=== PATIENT | female | born 2005 ===

== ENCOUNTER 2024-03-28 20:39 | Emergency (ER) | payer SELFPAY ==
[2024-03-28 20:47] VITALS: BP 158/100
[2024-03-28] MEDS: DELTASONE 50 MG PO (21:45)
[2024-03-28 23:15] VITALS: BP 126/75
--- NOTE | 2024-03-29 00:12 | ED.GENMED ---
History of Present Illness
General
Chief Complaint: Allergic Reaction
Source: patient
Time Seen by Provider: 03/28/24 21:14
History of Present Illness
History of Present Illness:
18yoF with a history of presenting with mother and significant other when she had a rash. She initially started having itching of her scalp 2 nights ago. She woke up yesterday with a rash on her bilateral hands, knees, neck, and feet. The rash
is itchy and mildly painful. She has taken [id number] anti-inflammatories without much improvement. She believes that she is having an allergic reaction to something. She denies any new products or exposures. Her only current medications
are minocycline and spironolactone which she has been taking for at least 1 month. Patient's family friend is a nurse and told her that she may have Lyme disease. Patient is otherwise asymptomatic and denies any fevers, chills, vomiting, shortness
of breath.
Past History
Past History
ED Past Medical History: None
ED Past Surgical History: None
Social History
Tobacco: Non-smoker
Alcohol: None
Drug: None
Personal: Single
Living: with family
Employment: Employed
Phy Exam
General Physical Exam
General Presentation: well appearing and no apparent distress
General age: appears stated age
General Skin: warm
General Habitus: normal
General Mental: alert
ENT Exam
ENT Exam: pharynx normal and normocephalic
Pulmonary Exam
Pulmonary Exam: no respiratory distress
[place] Coma Scale
Eye Opening: Spontaneous
Verbal Response: Oriented
Motor Response: Obeys Commands
GCS Total Score: 15
Skin Exam
Skin Exam: warm/dry and other (Scattered erythematous maculopapular rash to the bilateral hands and posterior neck. Blanches. No signs of infection or skin sloughing. No involvement of mucous membranes. )
Psychiatric Exam
Psychiatric Exam: normal mood/affect
Course
Orders/Labs/Results
Orders:
Orders
03/28/24 21:40
Prednisone [Deltasone] 50 mg PO NOW STA
03/28/24 21:57
Lyme Progressive Urgent
Vital Signs
Initial and Last Documented VS:
Initial Vital Signs
Temp Pulse Resp BP Pulse Ox
98.5 F 96 16 158/100 100
03/28/24 20:47 03/28/24 20:47 03/28/24 20:47 03/28/24 20:47 03/28/24 20:47
Last Documented Vital Signs
Temp Pulse Resp BP Pulse Ox
98.5 F 66 18 126/75 98
03/28/24 20:47 03/28/24 23:15 03/28/24 23:15 03/28/24 23:15 03/28/24 23:15
MDM/Problems Addressed
Differential Diagnosis Includes:
18yoF here with a red itchy rash x 1 day. She believes she may be having an allergic reaction but denies any new exposures. No respiratory or GI symptoms. VSS. There is an erythematous maculopapular rash on exam. No clinical signs of infection. Rash
appears to be a nonspecific dermatitis. Family friend told her that she may have Lyme disease.
Will send Lyme testing for completeness. She was started on a course of prednisone. Advised PRN Benadryl for itching. Advised f/u with PCP and ED return precautions discussed. She expressed understanding and is agreeable to plan. She was discharged
in stable condition.
*Critical Care Note
Total Time (30-74mins, 75-104mins- exclusive of procedures): Not Applicable
ED Attending Note
-
Portions of this chart may have been created with voice recognition software.� Occasional wrong word or��sound alike� substitutions may have occurred due to the inherent limitations of voice recognition software.
Discharge Plan
Departure
Patient Disposition: Home (Routine Discharge)
Date of Disposition: 03/28/24
Time of Disposition: 21:54
Patient with high blood pressure during this ER visit?: Yes
Discharge Problem:
Rash and nonspecific skin eruption
Instructions: Hives
Prescriptions:
New
prednisone 50 mg tablet
50 mg PO DAILY Qty: 4 0RF
No Action
minocycline 100 mg Tablet
100 mg PO DAILY
Referrals:
Michel Camara Sr., MD [Family Provider] -
Activity Restrictions/Additional Instructions:
Take prednisone as prescribed. Take Benadryl 25mg every 6 hours as needed for itching.
Please call tomorrow to schedule a follow-up with your family doctor. Return to the ER with any new or worsening symptoms.
Interventions
Interventions:
*Risk Screen - Suicide Last Done: 03/28/24 20:47
*General Assessment Last Done: 03/28/24 21:16
*Neglect/Abuse Screening Last Done: 03/28/24 21:16
*ED COVID-19 Vaccine History Last Done: 03/28/24 21:16
*Nursing Disposition Last Done: 03/28/24 23:15
ED- Cardiac Assessment Last Done: 03/28/24 21:16
ED- Pulmonary Assessment Last Done: 03/28/24 21:16
ED-Skin Assessment Last Done: 03/28/24 21:16
Discharge Date and Time
Discharge Date/Time: 03/28/24 23:16
Print Language: TELUGU
[2024-04-01 15:41] LABS: Lyme Antibody Screen, EIA Negative (Negative)
== END 2024-03-28 23:16 | disposition home or self-care (01) ==
LOC: EMR 20:39
PROVIDERS: Physician Assistant; EMERGENCY PHYSICIAN Emergency Medicine; FAMILY PHYSICIAN Internal Medicine Cardiovascular Disease
DX: R21 Rash and other nonspecific skin eruption (principal); R03.0 Elevated blood-pressure reading, without diagnosis of hypertension
CPT/HCPCS: 99283; 86618